=== PATIENT | male | born 1975 | race Caucasian/White ===

== ENCOUNTER → 2017-01-31 | Outpatient (REF) | payer OTHER | LOC: M SFHCLERA 14:01 | PROVIDERS: ATTEND Nurse Practitioner Family | DX: J03.90 Acute tonsillitis, unspecified (principal) ==

== ENCOUNTER 2017-08-22 12:02 | Day surgery (SDC) | payer OTHER ==
[~2017-08-22] VITALS: Ht 172.7 cm; Wt 91.2 kg
[~2017-08-22 12:02] MED LIST: GABA-282 PO; LISI10TA2 PO; NS 1,000 ML IV ONE; SIMV20TA2 PO; SUBO8MIS SL; TAMSULOSIN PO; TIZA4CAP3 PO
[2017-08-22] MEDS ORDERED: PROPOFOL 200 MG/20 ML VIAL As Ordered ONE (13:29)
--- NOTE | 2017-08-22 13:43 | ROOR ---
Patient Name: Augustine Ac Procedure Date: 08/22/2017 1:24 PM Date of : 1975 Age: 42 Room: [facility] Gender: Male Note Status: Finalized Procedure: Colonoscopy Indications: High risk colon cancer surveillance: Personal history of colonic polyps Providers: Keith SCHMIDT MD Referring MD: Rosaline STATON MD Requesting Provider: Medicines: Monitored Anesthesia Care Complications: No immediate complications. Procedure: Pre-Anesthesia Assessment: - The heart rate, respiratory rate, oxygen saturations, blood pressure, adequacy of pulmonary ventilation, and response to care were monitored throughout the procedure. - The heart rate, respiratory rate, oxygen saturations, blood pressure, adequacy of pulmonary ventilation, and response to care were monitored throughout the procedure. The Colonoscope was introduced through the anus and advanced to the terminal ileum, with identification of the appendiceal orifice and IC valve. The colonoscopy was performed without difficulty. The patient tolerated the procedure well. The quality of the bowel preparation was good. Findings: The perianal and digital rectal examinations were normal. Small Internal Hemorrhoids. The entire colon appeared normal on direct and retroflexion views. (Exam: Complete, Prep: Good or Excellent.) Impression: - Small Internal Hemorrhoids. - The entire colon is normal on direct and retroflexion views. - No specimens collected. - (Exam: Complete, Prep: Good.) Recommendation: - Repeat colonoscopy in 10 years for screening purposes. Keith Schmidt MD Keith SCHMIDT MD 08/22/2017 1:43:03 PM This report has been signed electronically. Number of Addenda: 0 Note Initiated On: 08/22/2017 1:24 PM Estimated Blood Loss: Estimated blood loss: none.
[2017-08-22 14:01] VITALS: BP 176/92
== END 2017-08-22 14:08 | disposition home or self-care (01) ==
LOC: M OPP 12:02
PROVIDERS: ATTEND Internal Medicine Gastroenterology
DX: K62.5 Hemorrhage of anus and rectum (principal); K59.00 Constipation, unspecified; Z86.010 Personal history of colon polyps; K64.8 Other hemorrhoids; I11.9 Hypertensive heart disease without heart failure; E78.5 Hyperlipidemia, unspecified; R01.1 Cardiac murmur, unspecified; I51.7 Cardiomegaly; G47.30 Sleep apnea, unspecified; F41.9 Anxiety disorder, unspecified; R39.89 Other symptoms and signs involving the genitourinary system; F17.210 Nicotine dependence, cigarettes, uncomplicated; Z88.8 Allergy status to other drugs, medicaments and biological substances; Z79.899 Other long term (current) drug therapy

== ENCOUNTER 2019-07-07 14:26 | Emergency (ER) | payer OTHER ==
[~2019-07-07] VITALS: Ht 172.7 cm; Wt 90.9 kg
[~2019-07-07 14:26] MED LIST changes: -GABA-282 PO; +GABA-843 PO; +LISI10TA15 PO; -LISI10TA2 PO; -NS 1,000 ML IV ONE; +TIZA4CAP PO; -TIZA4CAP3 PO
[2019-07-07] MEDS ORDERED: HYDR50TA70 (14:32)
[2019-07-07] MEDS ORDERED: LISI10TA15 (14:32)
[2019-07-07] MEDS ORDERED: NS 1,000 ML IV ONE (15:00)
[2019-07-07 15:31] LABS: BASO # 0.1 10^3/uL (0.0-0.2); BASO % 0.7 % (0.0-1.0); EOS # 0.1 10^3/uL (0.0-0.5); EOS % 1.4 % (0.0-3.0); HEMATOCRIT 43.1 % (42.0-52.0); HEMOGLOBIN 14.4 g/dl (13.5-17.5); LYMPH # 2.1 10^3/uL (1.5-5.0); LYMPH % 27.8 % (24.0-44.0); MEAN CORPUSCULAR HEMOGLOBIN 31.3 pg (27.0-33.0); MEAN CORPUSCULAR HGB CONC 33.4 g/dl (32.0-36.5); MEAN CORPUSCULAR VOLUME 93.7 fl (80.0-96.0); MONO # 0.4 10^3/uL (0.0-0.8); MONO % 5.1 % (0.0-5.0); NEUTROPHILS # 4.9 10^3/uL (1.5-8.5); NEUTROPHILS % 64.9 % (36.0-66.0); PLATELET COUNT, AUTOMATED 252 10^3/uL (150-450); WHITE BLOOD COUNT 7.6 10^3/uL (4.0-10.0)
[2019-07-07 15:57] LABS: ALT/SGPT 19 U/L (12-78); BILIRUBIN,TOTAL 0.3 MG/DL (0.2-1.0); BLOOD UREA NITROGEN 17 MG/DL (7-18); CALCIUM LEVEL 9.1 MG/DL (8.5-10.1); CARBON DIOXIDE LEVEL 27 MEQ/L (21-32); CHLORIDE LEVEL 107 MEQ/L (98-107); GLOMERULAR FILTRATION RATE > 60.0 (>60); GLUCOSE, FASTING 102 MG/DL (70-100); POTASSIUM SERUM 3.9 MEQ/L (3.5-5.1); SODIUM LEVEL 140 MEQ/L (136-145); TOTAL PROTEIN 7.4 GM/DL (6.4-8.2)
[2019-07-07 16:07] LABS: ERYTHROCYTE SEDIMENTATION RATE 16 mm/hr (0-15)
--- NOTE | 2019-07-07 16:58 | REPVR ---
PROCEDURE INFORMATION: Exam: CT Cervical Spine Without Contrast Exam date and time: 07/07/2019 4:02 PM Clinical history: 44 years old, male; Other: Headaches x4wks, insomnia; Additional info: Headaches x4wks, insomnia, decreased appetite TECHNIQUE: Imaging protocol: Computed tomography images of the cervical spine without contrast. Radiation optimization: All CT scans at this facility use at least one of these dose optimization techniques: automated exposure control; mA and/or kV adjustment per patient size (includes targeted exams where dose is matched to clinical indication); or iterative reconstruction. COMPARISON: No relevant prior studies available. FINDINGS: Vertebrae: No acute fracture. Normal alignment. Discs/Spinal canal/Neural foramina: Mild disc space narrowing at C4-5 with intervertebral osteophytes at C4-5 and C5-6. Moderate bilateral foraminal stenosis at C4, C5 and mild bilateral foraminal stenosis at C6 secondary to uncinate joint hypertrophic changes. Disc osteophyte complexes at C3-4, C4-5 and C5-6 with stenosis C4-5 and C5-6 effacing the ventral subarachnoid space with minimal cord impingement. Soft tissues: Unremarkable. Lungs: Lung apices are normal. IMPRESSION: No acute findings. Mild degenerative spondylosis. Electronically signed by: Anastacio Hernandez On 07/07/2019 16:58:17 PM
[2019-07-07] MEDS ORDERED: KETOROLAC 30 MG/ML VIAL (J1885) IV ONE (17:00)
[2019-07-07] MEDS ORDERED: ACETAMINOPHEN 325 MG TAB PO ONE (17:00)
[2019-07-07 17:57] VITALS: BP 174/81
--- NOTE | 2019-07-07 19:01 | REP ---
CT of the brain without IV contrast: There are no comparisons. There is no hemorrhage. There is no edema, mass effect or midline shift. The cortical stripe is unremarkable. The visualized paranasal sinuses and mastoid air cells are clear. Impression: There is no hemorrhage, acute infarct or mass. Essentially negative CT study of the brain. The study was originally interpreted at 04:17 p.m., however, that report did not get into the medical dosimetrist system for reasons unknown to this examiner. Electronically Signed by Jose Maria Dickey MD 07/07/2019 06:53 P
== END 2019-07-07 18:23 | disposition home or self-care (01) ==
LOC: M ED 14:26
DX: F07.81 Postconcussional syndrome (principal); M25.78 Osteophyte, vertebrae; M47.9 Spondylosis, unspecified; I10 Essential (primary) hypertension; F17.210 Nicotine dependence, cigarettes, uncomplicated; Z88.6 Allergy status to analgesic agent
CPT/HCPCS: 36415; 70450; 72125; 80053; 85025; 85652; 86140; 96361; 96374; 99284; J1885

== ENCOUNTER → 2020-01-17 | Outpatient (CLI) | payer OTHER ==
[~2020-01-17] MED LIST changes: +HYDR50TA70; +LISI10TA15; -SIMV20TA2 PO; +SIMV20TA22 PO
--- NOTE | 2020-01-17 17:18 | REP ---
MRI CERVICAL SPINE: Multiple sequences obtained in the sagittal and axial planes. No compression fracture is seen. There is no abnormal bone marrow signal. There is slight retrolisthesis of C4 on C5 of about 2 mm. This is due to arthropathy and is unchanged since the CT of 07/07/2019. There is diffuse loss of water signal and disc degeneration. There is mild disc space narrowing at C3-4 and C4-5. There is no abnormal signal in the cervical spinal cord. There is no disc bulging or herniation at C2-3. At C3-4, there is slight diffuse disc bulging. There is no spinal stenosis or foraminal narrowing. At C4-5, there is mild diffuse disc bulging and uncovertebral spurring. There is mild effacement of the anterior subarachnoid space with no cord compression. There does not appear to be significant neural foraminal narrowing. At C5-6, there is mild to moderate diffuse disc bulging with superimposed central disc protrusion. This slightly flattened the anterior cord. Neural foramina do not appear to be significantly narrowed. At C6-7, there is mild diffuse disc bulging and uncovertebral spurring. There is mild effacement of the anterior subarachnoid space without cord compression. There is no significant foraminal narrowing. IMPRESSION: Variable disc bulging and uncovertebral spurring at C3-4 through C6-7. There is mild flattening of the anterior cord at C5-6. There is no significant foraminal narrowing. Electronically Signed by Jose Maria Day MD 01/18/2020 04:47 P
== END ==
LOC: M RAD 14:43
PROVIDERS: ATTEND Physician Assistant
DX: M54.2 Cervicalgia (principal)

== ENCOUNTER → 2020-03-24 | Outpatient (CLI) | payer OTHER | LOC: M LABSMTC 11:07 | PROVIDERS: ATTEND Physical Medicine & Rehabilitation | DX: Z03.818 Encounter for observation for suspected exposure to other biological agents ruled out (principal); Z11.59 Encounter for screening for other viral diseases ==

== ENCOUNTER → 2021-01-11 | Outpatient (CLI) | payer SELFPAY ==
[~2021-01-11] MED LIST changes: +GABA-282 PO; -GABA-843 PO
== END ==
LOC: M LABSMTC 10:40
PROVIDERS: ATTEND Pediatrics
DX: Z20.828 Contact with and (suspected) exposure to other viral communicable diseases (principal); Z11.59 Encounter for screening for other viral diseases

== ENCOUNTER → 2021-02-06 | Outpatient (CLI) | payer OTHER ==
[~2021-02-06] MED LIST changes: +GABA800T4 PO; +LISI20TA20 PO; +SIMV40TA20 PO
== END ==
LOC: M LABSMTC 11:41
PROVIDERS: ATTEND Anesthesiology
DX: Z20.828 Contact with and (suspected) exposure to other viral communicable diseases (principal); Z11.59 Encounter for screening for other viral diseases

== ENCOUNTER 2021-02-11 09:45 | Day surgery (SDC) | payer MEDICARE, OTHER ==
[~2021-02-11] VITALS: Ht 172.7 cm; Wt 74.8 kg
[~2021-02-11 09:45] MED LIST changes: +LIDOCAINE 1% MDV 20ML VIAL SQ PRN; +LR 1,000 ML IV ONE
[2021-02-11] MEDS ORDERED: ROCURONIUM BROMIDE 50 MG/5 ML VIAL As Ordered ONE (12:16)
[2021-02-11] MEDS ORDERED: MIDAZOLAM INJ 2MG/2ML VIAL (J2250 PER 1MG) As Ordered ONE (12:16)
[2021-02-11] MEDS ORDERED: propofoL 200 MG/20 ML VIAL As Ordered ONE (12:16)
[2021-02-11] MEDS ORDERED: ONDANSETRON 4MG/2ML VIAL As Ordered ONE (12:16)
[2021-02-11] MEDS ORDERED: LIDOCAINE 2% 100MG/5ML SDV (FOR ANES.) As Ordered ONE (12:16)
[2021-02-11] MEDS ORDERED: dexameTHASONE 4 MG/ML 1ML VIAL (J1100 PER 1MG) As Ordered ONE (12:16)
[2021-02-11] MEDS ORDERED: fentaNYL 100 MCG/2 ML INJECTION (J3010) As Ordered ONE (12:16)
[2021-02-11] MEDS ORDERED: LIDOCAINE W/EPINEPHRINE 1% 20ML VIAL As Ordered ONE (12:39)
[2021-02-11] MEDS ORDERED: LR 1,000 ML IV SCH (13:55)
[2021-02-11] MEDS ORDERED: ONDANSETRON 4MG/2ML VIAL IV PRN (13:55)
[2021-02-11] MEDS ORDERED: KETOROLAC 30 MG/ML 1ML VIAL IV PRN (13:55)
[2021-02-11] MEDS ORDERED: ACETAMINOPHEN TAB 650MG DOSE (2X325MG) PO PRN (14:00)
[2021-02-11 15:10] VITALS: BP 170/80
--- NOTE | 2021-02-12 09:10 | RO ---
OPERATIVE NOTE DATE OF OPERATION: 02/11/2021 PREOPERATIVE DIAGNOSIS: Nonrestorable teeth. POSTOPERATIVE DIAGNOSIS: Nonrestorable teeth. PROCEDURE PERFORMED: Extraction of teeth #2, 4, 6, 8, 9, 11, and 14. SURGEON: Del Crystal DMD. BUSINESS CONTINUITY MANAGEMENT DIRECTOR: None ANESTHESIA: General. ESTIMATED BLOOD LOSS: 10 mL. SPECIMEN: Teeth. COMPLICATIONS: None. DESCRIPTION OF PROCEDURE: Patient was brought into the operating room, placed on the table in a supine position and after demonstration of an adequate plan of general anesthesia, the patient was prepped in the usual fashion for an intraoral procedure. Gauze throat pack was placed and local anesthesia was administered in the maxilla. Teeth #2,4,6,8,9,11 and 14 were extracted with elevators and forceps extraction after reflecting a flap and sectioning the teeth with round bur with copious irrigation. The areas were closed using 3-0 gut. The area was irrigated thoroughly with normal solution and a total of 10mL of lidocaine 1% with 1/100,000 epinephrine used via infiltration of surgical sites. Upon the completion of the procedure, the throat was removed. The pharynx was suctioned. The patient was extubated and taken to PACU in stable condition. [employer]
== END 2021-02-11 15:15 | disposition home or self-care (01) ==
LOC: M SDC 09:45
PROVIDERS: ATTEND Dentist Oral and Maxillofacial Surgery
DX: K02.9 Dental caries, unspecified (principal); I10 Essential (primary) hypertension; Z79.899 Other long term (current) drug therapy
CPT/HCPCS: 41899; 88300; J1100; J1885; J2250; J2405; J3010

== ENCOUNTER → 2021-10-01 | Outpatient (CLI) | payer OTHER ==
[~2021-10-01] MED LIST changes: -LIDOCAINE 1% MDV 20ML VIAL SQ PRN; -LR 1,000 ML IV ONE
--- NOTE | 2021-10-02 23:02 | REPVR ---
PROCEDURE INFORMATION: Exam: MR Lumbar Spine Without Contrast Exam date and time: 10/01/2021 2:15 PM Age: 46 years old Clinical indication: Low back pain; Additional info: Other spondylosis, lumbar region TECHNIQUE: Imaging protocol: Multiplanar magnetic resonance images of the lumbar spine without intravenous contrast. COMPARISON: CR Spine. Lumbosacral, complete 06/27/2016 2:14 PM FINDINGS: Vertebral body height and AP alignment is preserved. There is disc desiccation. Negative for discitis/osteomyelitis. No epidural fluid collection. Conus medullaris terminates at T12. L1-L2: Minimal disc bulge with superimposed small left paracentral protrusion. No central or foraminal stenosis. L2-L3: Mild disc bulge and mild bilateral facet joint arthropathy. No significant central or foraminal stenosis. L3-L4: Mild disc bulge with superimposed left paracentral cranially migrating extrusion measuring 4 mm in AP dimension and extending 1.4 cm above the adjacent endplate. There is borderline central canal stenosis without significant foraminal stenosis. L4-L5: Mild foraminal bulging of disc and mild bilateral facet joint arthropathy. No significant central or foraminal stenosis. L5-S1: Bila minimal disc bulge with left posterior annular tear. No significant central canal compromise. There is mild bilateral foraminal stenosis. IMPRESSION: Degenerative disc disease as above most prominently at L3-L4 where left paracentral cranially migrating extrusion contributes to borderline central canal stenosis. No high-grade central canal stenosis throughout. Electronically signed by: Edgar Caban On 10/02/2021 23:01:36 PM
== END ==
LOC: M RAD 13:07
PROVIDERS: ATTEND Physician Assistant
DX: M47.896 Other spondylosis, lumbar region (principal); M51.36 Other intervertebral disc degeneration, lumbar region